=== PATIENT | male | born 1985 | race American Indian/Alaskan Native ===

== ENCOUNTER 2020-11-27 06:10 | Emergency (ER) | payer OTHER ==
--- NOTE | 2020-11-27 07:01 | XRay Report ---
ABDOMEN 1 VIEW 11/27/2020 6:46 AM INDICATION / CLINICAL INFORMATION: constipation. COMPARISON: None available. FINDINGS: TUBES / LINES: None. BOWEL GAS PATTERN: No dilated large or small bowel. Moderate amount fecal material in the right colon . FREE AIR / EXTRALUMINAL GAS: None. ADDITIONAL FINDINGS: No significant additional findings. IMPRESSION: 1. No acute findings. Moderate amount of fecal material in the right colon. Signer Name: Marielle Garcia MD Signed: 11/27/2020 6:56 AM Workstation Name: [id number]
[2020-11-27 08:07] LABS: Basophils % (Auto) 0.3 % (0.0-1.8); Eosinophils # (Auto) 0.2 K/mm3 (0.0-0.4); Eosinophils % (Auto) 2.9 % (0.0-4.3); Hematocrit 43.7 % (35.5-45.6); Hemoglobin 15.5 gm/dl (11.8-15.2); Lymphocytes # (Auto) 1.9 K/mm3 (1.2-5.4); Mean Corpuscular HGB Conc 36 % (32-34); Mean Corpuscular Volume 92 fl (84-94); Monocytes # (Auto) 0.9 K/mm3 (0.0-0.8); Monocytes % (Auto) 10.9 % (0.0-7.3); Platelet Count 201 K/mm3 (140-440); Red Blood Count 4.75 M/mm3 (3.65-5.03); Red Cell Distribution Width 12.9 % (13.2-15.2)
[2020-11-27 08:49] LABS: Alanine Aminotransferase 32 units/L (7-56); Albumin 4.3 g/dL (3.9-5); BUN/Creatinine Ratio 13; Blood Urea Nitrogen 13 mg/dL (9-20); Calcium 9.3 mg/dL (8.4-10.2); Hemolysis Index 22
--- NOTE | 2020-11-27 09:05 | Emergency Department Report ---
ED General Adult HPI - General Chief complaint: Abdominal Pain Stated complaint: ABD PAIN Time Seen by Provider: 11/27/20 08:48 Source: patient Mode of arrival: Ambulatory Limitations: No Limitations - History of Present Illness Initial comments: 35-year-old -[place] male patient with history of hypertension presents with complaints of periumbilical and lower abdominal pain along with constipation x3 days. Patient states he is having very small bowel movements with hard palpable rock stools. He denies any melena/hematochezia, fever/chills/sweats, chest pain, cough, or shortness of breath. No urinary symptoms per patient. He rates his current pain as a 5/10 in severity. He does report one episode of vomiting without hematemesis/coffee-ground emesis and states he has a lack of appetite for the past 3 days. Patient states that he steele s history of adynamic ileus that led to hospital admission and that his symptoms feel the same as before. No history of diabetes or abdominal surgery per patient. - Related Data Previous Rx's Medication Instructions Recorded Last Taken Type Cyclobenzaprine [Flexeril 10 MG 10 mg PO BID PRN #14 tablet 04/28/16 Unknown Rx TAB] Ibuprofen [Motrin 800 MG tab] 800 mg PO Q8HR PRN #20 tablet 04/28/16 Unknown Rx Amoxicillin/Potassium Clav 1 each PO BID 10 Days #20 tablet 11/27/20 Unknown Rx [Augmentin 875-125 Tablet] Docusate Sodium [Colace] 100 mg PO BID PRN #20 capsule 11/27/20 Unknown Rx Ibuprofen [Motrin 800 MG tab] 800 mg PO Q8HR PRN #20 tablet 11/27/20 Unknown Rx Ondansetron [Zofran Odt] 4 mg PO Q8HR PRN #12 tab.rapdis 11/27/20 Unknown Rx Allergies Allergy/AdvReac Type Severity Reaction Status Date / Time No Known Allergies Allergy Unverified 04/28/16 07:27 ED Review of Systems ROS: Stated complaint: ABD PAIN Other details as noted in HPI Constitutional: denies: chills, diaphoresis, fever, malaise Respiratory: denies: cough, shortness of breath Cardiovascular: denies: chest pain Gastrointestinal: abdominal pain, nausea, vomiting, constipation. denies: diarrhea, hematemesis, melena, hematochezia Genitourinary: denies: urgency, dysuria, frequency, hematuria Musculoskeletal: denies: back pain Neurological: denies: headache Hematological/Lymphatic: denies: swollen glands ED Past Medical Hx - Past Medical History Previous Medical History?: Yes Hx Hypertension: Yes - Surgical History Past Surgical History?: Yes Additional Surgical History: L shoulder-screws, 2019 - Social History Smoking Status: Current Every Day Smoker Substance Use Type: None - Medications Home Medications: Home Medications Medication Instructions Recorded Confirmed Last Taken Type Cyclobenzaprine [Flexeril 10 MG 10 mg PO BID PRN #14 tablet 04/28/16 Unknown Rx TAB] Ibuprofen [Motrin 800 MG tab] 800 mg PO Q8HR PRN #20 tablet 04/28/16 Unknown Rx Amoxicillin/Potassium Clav 1 each PO BID 10 Days #20 tablet 11/27/20 Unknown Rx [Augmentin 875-125 Tablet] Docusate Sodium [Colace] 100 mg PO BID PRN #20 capsule 11/27/20 Unknown Rx Ibuprofen [Motrin 800 MG tab] 800 mg PO Q8HR PRN #20 tablet 11/27/20 Unknown Rx Ondansetron [Zofran Odt] 4 mg PO Q8HR PRN #12 tab.rapdis 11/27/20 Unknown Rx ED Physical Exam - General Limitations: No Limitations General appearance: alert, in no apparent distress, obese - Head Head exam: Present: atraumatic, normocephalic - Eye Eye exam: Present: normal appearance. Absent: scleral icterus - Neck Neck exam: Present: normal inspection - Respiratory Respiratory exam: Present: normal lung sounds bilaterally. Absent: respiratory distress - Cardiovascular Cardiovascular Exam: Present: regular rate, normal rhythm. Absent: systolic murmur, diastolic murmur, rubs, gallop - GI/Abdominal GI/Abdominal exam: Present: tenderness (Periumbilical, right lower quadrant, left lower quadrant), normal bowel sounds. Absent: guarding, rebound, rigid - Back Exam Back exam: Present: full ROM. Absent: CVA tenderness (R), CVA tenderness (L) - Neurological Exam Neurological exam: Present: alert, oriented X3, normal gait - Psychiatric Psychiatric exam: Present: normal affect, normal mood - Skin Skin exam: Present: warm, dry, intact, normal color. Absent: rash, cyanosis, diaphoretic ED Course Vital Signs 11/27/20 11/27/20 11/27/20 06:30 08:53 12:58 Temperature 98.0 F 97.7 F Pulse Rate 86 62 Respiratory 18 18 20 Rate Blood Pressure 135/95 139/81 O2 Sat by Pulse 95 98 Oximetry ED Medical Decision Making - Lab Data Result diagrams: 11/27/20 07:42 11/27/20 07:42 Lab Results 11/27/20 11/27/20 11/27/20 Range/Units 07:42 07:42 09:43 WBC 7.9 (4.5-11.0) K/mm3 RBC 4.75 (3.65-5.03) M/mm3 Hgb 15.5 H (11.8-15.2) gm/dl Hct 43.7 (35.5-45.6) % MCV 92 (84-94) fl MCH 33 H (28-32) pg MCHC 36 H (32-34) % RDW 12.9 L (13.2-15.2) % Plt Count 201 (140-440) K/mm3 Lymph % (Auto) 24.0 (13.4-35.0) % [place] % (Auto) 10.9 H (0.0-7.3) % Eos % (Auto) 2.9 (0.0-4.3) % Baso % (Auto) 0.3 (0.0-1.8) % Lymph # (Auto) 1.9 (1.2-5.4) K/mm3 [place] # (Auto) 0.9 H (0.0-0.8) K/mm3 Eos # (Auto) 0.2 (0.0-0.4) K/mm3 Baso # (Auto) 0.0 (0.0-0.1) K/mm3 Seg Neutrophils % 61.9 (40.0-70.0) % Seg Neutrophils # 4.9 (1.8-7.7) K/mm3 Sodium 143 (137-145) mmol/L Potassium 4.0 (3.6-5.0) mmol/L Chloride 104.4 (98-107) mmol/L Carbon Dioxide 30 (22-30) mmol/L Anion Gap 13 mmol/L BUN 13 (9-20) mg/dL Creatinine 1.0 (0.8-1.3) mg/dL Estimated GFR > 60 ml/min BUN/Creatinine Ratio 13 % Glucose 99 (75-100) mg/dL Calcium 9.3 (8.4-10.2) mg/dL Total Bilirubin 0.50 (0.1-1.2) mg/dL AST 25 (5-40) units/L ALT 32 (7-56) units/L Alkaline Phosphatase 101 (35-129) units/L Total Protein 7.7 (6.3-8.2) g/dL Albumin 4.3 (3.9-5) g/dL Albumin/Globulin Ratio 1.3 % Lipase 13 (13-60) units/L Urine Color Yellow (Yellow) Urine Turbidity Clear (Clear) Urine pH 6.0 (5.0-7.0) Ur Specific [place] 1.026 (1.003-1.030) Urine Protein <15 mg/dl (Negative) mg/dL Urine Glucose (UA) Neg (Negative) mg/dL Urine Ketones Neg (Negative) mg/dL Urine Blood Neg (Negative) Urine Nitrite Neg (Negative) Ur Reducing Substances Not Reportable Urine Bilirubin Neg (Negative) Urine Ictotest Not Reportable Urine Urobilinogen 2.0 (<2.0) mg/dL Ur Leukocyte Esterase Neg (Negative) Urine WBC (Auto) 1.0 (0.0-6.0) /HPF Urine RBC (Auto) 3.0 (0.0-6.0) /HPF U Epithel Cells (Auto) < 1.0 (0-13.0) /HPF Urine Mucus Few /HPF - Radiology Data Radiology results: report reviewed ABDOMEN 1 VIEW 11/27/2020 6:46 AM INDICATION / CLINICAL INFORMATION: constipation. COMPARISON: None available. FINDINGS: TUBES / LINES: None. BOWEL GAS PATTERN: No dilated large or small bowel. Moderate amount fecal material in the right colon. FREE AIR / EXTRALUMINAL GAS: None. ADDITIONAL FINDINGS: No significant additional findings. IMPRESSION: 1. No acute findings. Moderate amount of fecal material in the right colon. CT ABDOMEN AND PELVIS WITH CONTRAST INDICATION / CLINICAL INFORMATION: mid abd pain, constipation, hx of ileus 100 ML OMNI 300 . TECHNIQUE: Axial CT images were obtained through the abdomen and pelvis after IV contrast. All CT scans at this location are performed using CT dose reduction for ALARA by means of automated exposure control. COMPARISON: Abdominal radiograph earlier same day FINDINGS: LOWER CHEST: No significant abnormality. LIVER: No significant abnormality. GALLBLADDER: No significant abnormality. BILE DUCTS: No significant abnormality. PANCREAS: No significant abnormality. SPLEEN: No significant abnormality. ADRENALS: No significant abnormality. RIGHT KIDNEY / URETER: No significant abnormality. LEFT KIDNEY / URETER: No significant abnormality. STOMACH / SMALL BOWEL: No significant abnormality. COLON: Wall thickening and submucosal edema involving the transverse and descending colon with faint pericolonic stranding. APPENDIX: The appendix is enlarged in caliber but is mostly air-filled without without periappendiceal inflammation. Appendix measures approximately 1.2 cm in greatest diameter. PERITONEUM: No free fluid. No free air. No fluid collection. LYMPH NODES: No significant adenopathy. AORTA / ARTERIES: No significant abnormality. IVC / VEINS: No significant abnormality. URINARY BLADDER: No significant abnormality. REPRODUCTIVE ORGANS: No significant abnormality. ADDITIONAL FINDINGS: None. SKELETAL SYSTEM: No significant abnormality. IMPRESSION: 1. Mild colitis involving the transverse and descending colon. 2. Appendix is enlarged in caliber, measuring 1.2 cm. However, it is nearly completely air filled without periappendiceal inflammation. Findings are favored to represent developmental variation in size over acute appendicitis. However, correlation with physical exam is recommended. - Medical Decision Making 35-year-old -[place] male patient with history of hypertension presents with complaints of periumbilical and lower abdominal pain along with constipation x3 days. Patient states he is having very small bowel movements with hard palpable rock stools. He denies any melena/hematochezia, fever/chills/sweats, chest pain, cough, or shortness of breath. No urinary symptoms per patient. He rates his current pain as a 5/10 in severity. He does report one episode of vomiting without hematemesis/coffee-ground emesis and states he has a lack of appetite for the past 3 days. Patient states that he has history of adynamic ileus that led to hospital admission and that his symptoms feel the same as before. No history of diabetes or abdominal surgery per patient. CBC, CMP, lipase, UA are without acute findings. CT abdomen performed given history of ileus and shows colitis of the transverse and descending colon with enlargement of the appendix without inflammation. Discussed patient with Dr. Ch, general surgery-states after reviewing the CT scan with the radiologist and examined the patient, it does not appear patient has appendicitis. She recommends treatment for colitis with Augmentin and Zofran and a stool softener for the constipation. Patient is okay to follow-up with his PCP per Dr. Ch. Discussed plan of care with patient and signs and symptoms that should prompt immediate return to the emergency department in detail, he verbalizes unders tanding. His vitals remain normal, he is well-appearing, he is stable for discharge home. Critical care attestation.: If time is entered above; I have spent that time in minutes in the direct care of this critically ill patient, excluding procedure time. ED Disposition Clinical Impression: Colitis Disposition: DC-01 TO HOME OR SELFCARE Is pt being admited?: No Condition: Stable Instructions: Colitis Prescriptions: Amoxicillin/Potassium Clav [Augmentin 875-125 Tablet] 1 each PO BID 10 Days #20 tablet Docusate Sodium [Colace] 100 mg PO BID PRN #20 capsule PRN Reason: Constipation Ibuprofen [Motrin 800 MG tab] 800 mg PO Q8HR PRN #20 tablet PRN Reason: pain Ondansetron [Zofran Odt] 4 mg PO Q8HR PRN #12 tab.rapdis PRN Reason: Nausea Referrals: PRIMARY CARE, [Primary Care Provider] - 3-5 Days Forms: Work/School Release Form(ED)
[2020-11-27 10:24] LABS: Mucus,Urine FEW /HPF
[2020-11-27 10:25] LABS: Bilirubin,Urine NEG (Negative); Blood,Urine NEG (Negative); Color,Urine Yellow (Yellow); Protein,Urine <15 mg/dL mg/dL (Negative)
--- NOTE | 2020-11-27 11:02 | Cat Scan Report ---
CT ABDOMEN AND PELVIS WITH CONTRAST INDICATION / CLINICAL INFORMATION: mid abd pain, constipation, hx of ileus 100 ML OMNI 300 . TECHNIQUE: Axial CT images were obtained through the abdomen and pelvis after IV contrast. All CT sc ans at this location are performed using CT dose reduction for ALARA by means of automated exposure c ontrol. COMPARISON: Abdominal radiograph earlier same day FINDINGS: LOWER CHEST: No significant abnormality. LIVER: No significant abnormality. GALLBLADDER: No significant abnormality. BILE DUCTS: No significant abnormality. PANCREAS: No significant abnormality. SPLEEN: No significant abnormality. ADRENALS: No significant abnormality. RIGHT KIDNEY / URETER: No significant abnormality. LEFT KIDNEY / URETER: No significant abnormality. STOMACH / SMALL BOWEL: No significant abnormality. COLON: Wall thickening and submucosal edema involving the transverse and descending colon with faint pericolonic stranding. APPENDIX: The appendix is enlarged in caliber but is mostly air-filled without without periappendicea l inflammation. Appendix measures approximately 1.2 cm in greatest diameter. PERITONEUM: No free fluid. No free air. No fluid collection. LYMPH NODES: No significant adenopathy. AORTA / ARTERIES: No significant abnormality. IVC / VEINS: No significant abnormality. URINARY BLADDER: No significant abnormality. REPRODUCTIVE ORGANS: No significant abnormality. ADDITIONAL FINDINGS: None. SKELETAL SYSTEM: No significant abnormality. IMPRESSION: 1. Mild colitis involving the transverse and descending colon. 2. Appendix is enlarged in caliber, measuring 1.2 cm. However, it is nearly completely air filled wi thout periappendiceal inflammation. Findings are favored to represent developmental variation in size over acute appendicitis. However, correlation with physical exam is recommended. Signer Name: Ronny Aguilera MD Signed: 11/27/2020 10:57 AM Workstation Name: [id number]
[2020-11-27 15:26] VITALS: BP 137/85
--- NOTE | 2020-11-27 15:29 | Consultation ---
History of Present Illness Consult date: 11/27/20 Reason for consult: abdominal pain Chief complaint: abd pain - History of present illness History of present illness: 35 yo M with no PMHx who presents to ER with c/o crampy abdominal pain that started 3 days ago. Patient states pain started suddenly and has been intermittent. It is located near the umbilicus and does not radiate. He has had decreased appetite and one episode of nonbilious/nonbloody emesis. No f/c. No cp, sob. + Constipation. He had pain like this once in the past and was told he had an ileus. He has never had abdominal surgery. Past History Past Medical History: No medical history Past Surgical History: Other (shoulder surgery) Social history: no significant social history Family history: no significant family history Medications and Allergies Allergies Allergy/AdvReac Type Severity Reaction Status Date / Time No Known Allergies Allergy Unverified 04/28/16 07:27 Home Medications Medication Instructions Recorded Confirmed Last Taken Type Cyclobenzaprine [Flexeril 10 MG 10 mg PO BID PRN #14 tablet 04/28/16 Unknown Rx TAB] Ibuprofen [Motrin 800 MG tab] 800 mg PO Q8HR PRN #20 tablet 04/28/16 Unknown Rx Amoxicillin/Potassium Clav 1 each PO BID 10 Days #20 tablet 11/27/20 Unknown Rx [Augmentin 875-125 Tablet] Docusate Sodium [Colace] 100 mg PO BID PRN #20 capsule 11/27/20 Unknown Rx Ibuprofen [Motrin 800 MG tab] 800 mg PO Q8HR PRN #20 tablet 11/27/20 Unknown Rx Ondansetron [Zofran Odt] 4 mg PO Q8HR PRN #12 tab.rapdis 11/27/20 Unknown Rx Review of Systems All systems: negative (10 point ROS performed and negative except for that listed in HPI) Exam Vital Signs Temp Resp BP 98.0 F 18 135/95 11/27/20 06:30 11/27/20 06:30 11/27/20 06:30 Narrative exam: Gen.: Awake, alert, oriented x3. No apparent distress ENT: Trachea midline. No lymphadenopathy. No scleral icterus or conjunctival pallor CV: S1, S2 present Respiratory: No audible wheezes Abdomen: Soft, nondistended, mild periumbilical discomfort on palpation. No rebound, rigidity, guarding Extremities: No clubbing, cyanosis, edema Results - Labs 11/27/20 07:42 11/27/20 07:42 Abnormal lab results 11/27/20 Range/Units 07:42 Hgb 15.5 H (11.8-15.2) gm/dl MCH 33 H (28-32) pg MCHC 36 H (32-34) % RDW 12.9 L (13.2-15.2) % [place] % (Auto) 10.9 H (0.0-7.3) % [place] # (Auto) 0.9 H (0.0-0.8) K/mm3 Diabetes panel 11/27/20 Range/Units 07:42 Sodium 143 (137-145) mmol/L Potassium 4.0 (3.6-5.0) mmol/L Chloride 104.4 (98-107) mmol/L Carbon Dioxide 30 (22-30) mmol/L BUN 13 (9-20) mg/dL Creatinine 1.0 (0.8-1.3) mg/dL Glucose 99 (75-100) mg/dL Calcium 9.3 (8.4-10.2) mg/dL AST 25 (5-40) units/L ALT 32 (7-56) units/L Alkaline Phosphatase 101 (35-129) units/L Total Protein 7.7 (6.3-8.2) g/dL Albumin 4.3 (3.9-5) g/dL Calcium panel 11/27/20 Range/Units 07:42 Calcium 9.3 (8.4-10.2) mg/dL Albumin 4.3 (3.9-5) g/dL Pituitary panel 11/27/20 Range/Units 07:42 Sodium 143 (137-145) mmol/L Potassium 4.0 (3.6-5.0) mmol/L Chloride 104.4 (98-107) mmol/L Carbon Dioxide 30 (22-30) mmol/L BUN 13 (9-20) mg/dL Creatinine 1.0 (0.8-1.3) mg/dL Glucose 99 (75-100) mg/dL Calcium 9.3 (8.4-10.2) mg/dL Adrenal panel 11/27/20 Range/Units 07:42 Sodium 143 (137-145) mmol/L Potassium 4.0 (3.6-5.0) mmol/L Chloride 104.4 (98-107) mmol/L Carbon Dioxide 30 (22-30) mmol/L BUN 13 (9-20) mg/dL Creatinine 1.0 (0.8-1.3) mg/dL Glucose 99 (75-100) mg/dL Calcium 9.3 (8.4-10.2) mg/dL Total Bilirubin 0.50 (0.1-1.2) mg/dL AST 25 (5-40) units/L ALT 32 (7-56) units/L Alkaline Phosphatase 101 (35-129) units/L Total Protein 7.7 (6.3-8.2) g/dL Albumin 4.3 (3.9-5) g/dL - Imaging CT scan - abdomen: report reviewed, image reviewed CT scan - pelvis: report reviewed, image reviewed Assessment and Plan 35 yo M with abdominal pain 2/[address] A/P reviewed independently and with in-house radiologist. Appendix is normal. Thickening of the transverse colon and descending colon insistent with colitis. Pt stable. Afebrile. NO WBC or shift Plan: 1. CLD 2. Prn antiemetics 3. prn pain control 4. abx - 10 days of augmentin 5. stool softeners 6. No surgical intervention. May dc per ER provider Discussed plan with patient and all questions answered. Thank you for this consultation. Please call with any questions or concerns. Evaluation and treatment of this patient was during the time of the national and state emergency arising from COVID19 coronavirus pandemic. Treatment and procedures performed meet the current and available best practice and guidelines for patient during the COVID pandemic.
== END 2020-11-27 15:26 | disposition home or self-care (01) ==
LOC: ED 06:10
DX: K52.9 Noninfective gastroenteritis and colitis, unspecified (principal); I10 Essential (primary) hypertension; F17.200 Nicotine dependence, unspecified, uncomplicated; Z79.899 Other long term (current) drug therapy
CPT/HCPCS: 36415; 74018; 74177; 80053; 81001; 83690; 85025; 99284; Q9967

== ENCOUNTER 2021-03-15 21:54 | Emergency (ER) | payer OTHER ==
[2021-03-15] MEDS ORDERED: HYDROcodone/ACETAMINOPHEN 7.5-325MG TAB PO ONE (22:11)
[2021-03-15] MEDS ORDERED: IBUPROFEN 600 MG TAB PO ONE (22:11)
[2021-03-15] MEDS ORDERED: ONDANSETRON 4 MG ODT TAB PO ONE (22:11)
--- NOTE | 2021-03-15 23:30 | XRay Report ---
LEFT KNEE 3 VIEWS INDICATION / CLINICAL INFORMATION: Left knee pain, twisting injury. COMPARISON: None available. FINDINGS: BONES and JOINT(S): No acute fracture or subluxation. No significant arthritis. SOFT TISSUES: No significant abnormality. ADDITIONAL FINDINGS: None. IMPRESSION: 1. No acute findings. Signer Name: Sumeet Hare MD Signed: 03/15/2021 11:26 PM Workstation Name: [id number]
--- NOTE | 2021-03-15 23:46 | Emergency Department Report ---
ED Lower Extremity HPI - General Chief Complaint: Extremity Injury, Lower Stated Complaint: LEFT KNEE INJURY Source: patient Mode of arrival: Ambulatory Limitations: No Limitations - History of Present Illness Initial Comments: Patient is a 35-year-old -[place] male with past medical history of asthma and hypertension presents to the ED with complaint of acute onset per sistent severe left knee pain after he twisted his knee when moving heavy furniture about 6 hours ago. Patient states that he heard a pop when he turned when lifting heavy object at home. Patient states that the pain has been persistent, constant and that he is unable to bear weight on the left leg because of worsening left knee pain. Patient denies fall, dizziness, syncope, nausea and vomiting, numbness and tingling or weakness of lower extremities bilaterally, hip pain, low back pain, chest pain or shortness of breath. MD Complaint: knee injury (Left knee pain, swelling) -: Sudden, hour(s) (6) Injury: Knee: Left (Left knee pain and mild swelling) Type of Injury: hyperflexion Place: home Severity: severe Severity scale (0 -10): 8 Improves With: nothing Worsens With: weight bearing, movement, palpation Context: walking (Twisted left knee) Associated Symptoms: snap/pop sensation, swelling, able to partially bear weight. denies: numbness, tingling, unable to bear weight - Related Data Previous Rx's Medication Instructions Recorded Last Taken Type Cyclobenzaprine [Flexeril 10 MG 10 mg PO BID PRN #14 tablet 04/28/16 Unknown Rx TAB] Amoxicillin/Potassium Clav 1 each PO BID 10 Days #20 tablet 11/27/20 Unknown Rx [Augmentin 875-125 Tablet] Docusate Sodium [Colace] 100 mg PO BID PRN #20 capsule 11/27/20 Unknown Rx Ibuprofen [Motrin 800 MG tab] 800 mg PO Q8HR PRN #20 tablet 11/27/20 Unknown Rx Ondansetron [Zofran Odt] 4 mg PO Q8HR PRN #12 tab.rapdis 11/27/20 Unknown Rx Baclofen 20 mg PO Q12H PRN #24 tablet 03/15/21 Unknown Rx Ibuprofen [Motrin 800 MG tab] 800 mg PO Q8HR PRN #30 tablet 03/15/21 Unknown Rx traMADoL [Ultram] 50 mg PO Q6HR PRN #10 tablet 03/15/21 Unknown Rx Allergies Allergy/AdvReac Type Severity Reaction Status Date / Time No Known Allergies Allergy Unverified 04/28/16 07:27 ED Review of Systems ROS: Stated complaint: LEFT KNEE INJURY Other details as noted in HPI Constitutional: denies: chills, fever Eyes: denies: eye pain, eye discharge, vision change ENT: denies: ear pain, throat pain Respiratory: denies: cough, shortness of breath, wheezing Cardiovascular: denies: chest pain, palpitations Endocrine: no symptoms reported Gastrointestinal: denies: abdominal pain, nausea, diarrhea Genitourinary: denies: urgency, dysuria Musculoskeletal: joint swelling (Left knee swelling), arthralgia (Left knee pain and swelling). denies: back pain Skin: denies: rash, lesions Neurological: denies: headache, weakness, paresthesias Psychiatric: denies: anxiety, depression Hematological/Lymphatic: denies: easy bleeding, easy bruising ED Past Medical Hx - Past Medical History Previous Medical History?: Yes Hx Hypertension: Yes Hx Asthma: Yes - Surgical History Past Surgical History?: Yes Additional Surgical History: L shoulder-screws, 2019 - Social History Smoking Status: Never Smoker Substance Use Type: None - Medications Home Medications: Home Medications Medication Instructions Recorded Confirmed Last Taken Type Cyclobenzaprine [Flexeril 10 MG 10 mg PO BID PRN #14 tablet 04/28/16 Unknown Rx TAB] Amoxicillin/Potassium Clav 1 each PO BID 10 Days #20 tablet 11/27/20 Unknown Rx [Augmentin 875-125 Tablet] Docusate Sodium [Colace] 100 mg PO BID PRN #20 capsule 11/27/20 Unknown Rx Ibuprofen [Motrin 800 MG tab] 800 mg PO Q8HR PRN #20 tablet 11/27/20 Unknown Rx Ondansetron [Zofran Odt] 4 mg PO Q8HR PRN #12 tab.rapdis 11/27/20 Unknown Rx Baclofen 20 mg PO Q12H PRN #24 tablet 03/15/21 Unknown Rx Ibuprofen [Motrin 800 MG tab] 800 mg PO Q8HR PRN #30 tablet 03/15/21 Unknown Rx traMADoL [Ultram] 50 mg PO Q6HR PRN #10 tablet 03/15/21 Unknown Rx ED Physical Exam - General Limitations: No Limitations General appearance: alert, in no apparent distress - Head Head exam: Present: atraumatic, normocephalic, normal inspection - Eye Eye exam: Present: normal appearance, PERRL, EOMI Pupils: Present: normal accommodation - ENT ENT exam: Present: normal exam, normal orophraynx, mucous membranes moist, TM's normal bilaterally, normal external ear exam - Neck Neck exam: Present: normal inspection, full ROM. Absent: tenderness - Respiratory Respiratory exam: Present: normal lung sounds bilaterally. Absent: respiratory distress, wheezes, rales, rhonchi, chest wall tenderness, accessory muscle use, decreased breath sounds - Cardiovascular Cardiovascular Exam: Present: normal rhythm, tachycardia, normal heart sounds. Absent: systolic murmur, diastolic murmur, rubs, gallop - GI/Abdominal GI/Abdominal exam: Present: soft, normal bowel sounds. Absent: tenderness, guarding, rebound, hyperactive bowel sounds - Extremities Exam Extremities exam: Present: normal inspection, tenderness (Palpable severe left knee tenderness with active and passive range of motions, limited range of motion due to pain), normal capillary refill, joint swelling (Mildly swollen left knee). Absent: full ROM (Limited range of motion of left knee due to pain), pedal edema, calf tenderness - Back Exam Back exam: Present: normal inspection, full ROM. Absent: tenderness, CVA tenderness (R), CVA tenderness (L), muscle spasm, paraspinal tenderness, vertebral tenderness - Neurological Exam Neurological exam: Present: alert, oriented X3, CN II-XII intact, normal gait, reflexes normal - Psychiatric Psychiatric exam: Present: normal affect, normal mood, anxious - Skin Skin exam: Present: warm, dry, intact, normal color. Absent: rash ED Course Vital Signs 03/15/21 03/16/21 22:06 00:41 Temperature 97.7 F Pulse Rate 122 H 96 H Respiratory 18 17 Rate Blood Pressure 146/91 143/92 [Right] O2 Sat by Pulse 96 96 Oximetry ED Lower Extremity MDM - Radiology Data Radiology results: report reviewed, image reviewed [facility] [address] [place] [address] XRay Report Signed Patient: SHELLIE EDGAR MR#: [id number] : 1985 Acct:[id number] Age/Sex: 35 / M ADM Date: 03/15/21 Loc: ED Attending Dr: Ordering Physician: MIL KUMAR Date of Service: 03/15/21 Procedure(s): XR knee 3V LT Accession Number(s): [id number] cc: MIL KUMAR Fluoro Time In Minutes: LEFT KNEE 3 VIEWS INDICATION / CLINICAL INFORMATION: Left knee pain, twisting injury. COMPARISON: None available. FINDINGS: BONES and JOINT(S): No acute fracture or subluxation. No significant arthritis. SOFT TISSUES: No significant abnormality. ADDITIONAL FINDINGS: None. IMPRESSION: 1. No acute findings. Signer Name: Sumeet Hare MD Signed: 03/15/2021 11:26 PM Workstation Name: [id number] Transcribed By: MN Dictated By: Sumeet Hare MD Electronically Authenticated By: Sumeet Hare MD Signed Date/Time: 03/15/212325 DD/ 24 TD/TT: - Medical Decision Making This is a 35-year-old -[place] male with past medical history of asthma and hypertension presents to the ED with complaint of acute onset persistent severe left knee pain after he twisted his knee when moving heavy furniture about 6 hours ago. Patient states that he heard a pop when he turned when lifting heavy object at home. Patient states that the pain has been persistent, constant and that he is unable to bear weight on the left leg because of worsening left knee pain. In the ED, patient is alert and oriented x3 and is not in any distress. Patient was treated for pain in the ED. Left knee x-ray showed no acute fractures or subluxations. Patient left knee was splinted with Obdulio wrap and patient fitted with crutches and will discharge home on pain medications and advised to follow-up with his primary care physician in 5 to 7 days for reevaluation or return to the ED immediately if symptoms get worse - Differential Diagnosis Knee fracture; knee sprain; muscle strain; Critical care attestation.: If time is entered above; I have spent that time in minutes in the direct care of this critically ill patient, excluding procedure time. ED Disposition Clinical Impression: Sprain of left knee Qualifiers: Encounter type: initial encounter Involved ligament of knee: unspecified ligament Qualified Code(s): S83.92XA - Sprain of unspecified site of left knee, initial encounter Muscle strain of left knee Qualifiers: Encounter type: initial encounter Qualified Code(s): S86.912A - Strain of unspecified muscle(s) and tendon(s) at lower leg level, left leg, initial encounter Disposition: HOME / SELF CARE / HOMELESS Is pt being admited?: No Does the pt Need Aspirin: No Condition: Stable Instructions: Knee Sprain, Adult, [id number], Muscle Strain, [id number] Additional Instructions: The x-ray of your left knee showed no acute fractures or subluxations. Your injuries are likely musculoskeletal. Therefore take pain medications as needed, drink plenty fluids and follow-up with your primary care physician in 7 to 10 days for reevaluation or return to the ED immediately if symptoms get worse Prescriptions: Baclofen 20 mg PO Q12H PRN #24 tablet PRN Reason: Muscle Spasm Ibuprofen [Motrin 800 MG tab] 800 mg PO Q8HR PRN #30 tablet PRN Reason: Pain traMADoL [Ultram] 50 mg PO Q6HR PRN #10 tablet PRN Reason: Pain Referrals: [facility] [Provider Group] - 7-10 days Forms: Work/School Release Form(ED) Time of Disposition: 23:47 Print Language: VENEZUELAN
[2021-03-16 00:42] VITALS: BP 143/92
== END 2021-03-16 00:38 | disposition home or self-care (01) ==
LOC: ED 21:54
DX: S83.92XA Sprain of unspecified site of left knee, initial encounter (principal); S86.912A Strain of unspecified muscle(s) and tendon(s) at lower leg level, left leg, initial encounter; J45.909 Unspecified asthma, uncomplicated; I10 Essential (primary) hypertension; X50.0XXA Overexertion from strenuous movement or load, initial encounter; Y93.9 Activity, unspecified; Y92.89 Other specified places as the place of occurrence of the external cause; Y99.8 Other external cause status
CPT/HCPCS: 99284; J3490; Q0162